=== PATIENT | male | born 1960 | race Caucasian/White ===

== ENCOUNTER → 2016-11-24 08:43 | Outpatient (CLI) | payer BC ==
[~2016-11-24] VITALS: Ht 198.1 cm; Wt 120.5 kg
--- NOTE | ~2016-11-24 | HEMODYNAMI ---
PATIENT:RAVI GARCÍA MEDICAL RECORD: [id number] : 56 LOCATION:D.CAT ADMISSION DATE: 11/24/16 Generatedon:11/24/201611:11 Patient name: RAVI GARCÍA Patient #: [id number] SSN: : 1960 Date of study: 11/24/2016 Page: Of Hemodynamic Procedure Report Patient Data Patient Demographics Procedure consent was obtained First Name: RAVI Gender: Male Last Name: RAQUEL : 1960 Middle Initial: TINA Age: 56 year(s) Patient #: [id number] Race: Unknown Additional ID: [id number] Contact details [address]: [address] [place] [address] State: [place] City: [place] Zip code: [address] Past Medical History Allergies: No known allergies Admission Admission Data Admission Date: 11/24/2016 Admission Time: 8:43 Lab Results Lab Result Date: 11/24/2016 Lab Result Time: 0:00 Biochemistry Name Units Result Min Max Creatinine mg/dl 1 --(--*-)-- 0.6 1.3 CBC Name Units Result Min Max Hemoglobin g/dl 14.3 --(*---)-- 13.5 17.5 Procedure Procedure Types Cath Procedure Diagnostic Procedure C [facility] w/Coronaries Miscellaneous Procedures Moderate Sedation up to 15 minutes Procedure Description Procedure Date Procedure Date: 11/24/2016 Procedure Start Time: 10:58 Procedure End Time: 11:09 Procedure Staff Name Function Krish Archuleta MD Performing Physician Alexander Nicole RT Scrub Paul Bolaños RN Nurse Diana Ngo RT Monitor Procedure Data Cath Procedure Fluoroscopy Diagnostic fluoroscopy Total fluoroscopy Time: 1.3 time: 1.3 min min Diagnostic fluoroscopy Total fluoroscopy dose: 308 dose: 308 mGy mGy Contrast Material Contrast Material Type Amount (ml) Isovue 300 57 Entry Location Entry Primary Successful Side Size Upsize Upsize Entry Closure Succes sful Closure Location (Fr) 1 (Fr) 2 (Fr) Remarks Device Remarks Femoral Right 5 Fr Exoseal artery Estimated blood loss: 5 ml Diagnostic catheters Device Type Used For End Catheter Placement Cordis 5Fr Pigtail LV Angiography Catheter (MP) Cordis 5Fr JL 4.0 Left Coronary Catheter (MP) Angiography Cordis 5Fr 3DRC Catheter Right Coronary (MP) Angiography Procedure Complications No complications Procedure Medications Medication Administration Route Dosage Oxygen NC 2 l/min Heparin Flush Bag added to field 2 bags (1000units/500ml NS) 0.9% NaCl I.V. 100 ml/hr Fentanyl I.V. 100 mcg Versed I.V. 2 mg Fentanyl I.V. 100 mcg Versed I.V. 2 mg Hemodynamics Rest HGB: 14.3 (g/dl) Heart Rate: 67 (bpm) Pressure Samples Time Site Value (mmHg) Purpose Heart Use Rate(bpm) 11:02 LV 19/12,13 Snapshot 65 Snapshots Pre Cath Intra NCS Post Cath Vital Signs Time Heart Resp SPO2 NIBP (mmHg) Rhythm Pain Sedation Rate (ipm) (%) Status Level (bpm) 10:35:13 64 17 98 143/93(112) NSR 0 (11) 10(A) , No pain 10:39:25 64 18 95 134/93(109) NSR 0 (11) 10(A) , No pain 10:43:35 70 18 95 131/92(117) NSR 0 (11) 10(A) , No pain 10:47:43 63 19 94 129/91(113) NSR 0 (11) 10(A) , No pain 10:51:52 65 18 95 136/84(111) NSR 0 (11) 10(A) , No pain 10:56:04 69 17 95 120/83(112) NSR 0 (11) 10(A) , No pain 11:00:12 69 17 96 117/83(96) NSR 0 (11) 9(A) , No pain 11:04:16 73 17 95 116/90(110) NSR 0 (11) 9(A) , No pain 11:08:20 81 17 96 129/93(116) NSR 0 (11) 9(A) , No pain 11:11:06 72 17 94 135/79(116) NSR 0 (11) 9(A) , No pain Medications Time Medication Route Dose Verified Delivered Reason Notes Effec tiveness by by 10:35:10 Oxygen NC 2 Paul Paul Per l/min Miky Bolaños RN physician RN 10:35:19 Heparin Flush added 2 Paul Paul used for Bag to bags Miky Bolaños RN procedure (1000units/500ml field RN NS) 10:35:32 0.9% NaCl I.V. 100 Paul Paul Per ml/hr Miky Bolaños RN physician RN 10:57:27 Fentanyl I.V. 100 Paul Paul for [facility] Miky Bolaños RN sedation RN 10:57:33 Versed I.V. 2 mg Paul Paul for Miky Bolaños RN sedation RN 10:59:02 Fentanyl I.V. 100 Paul Paul for [facility] Miky Bolaños RN sedation RN 10:59:06 Versed I.V. 2 mg Paul Paul for Miky Bolaños RN sedation trading manager Log Time Note 10:15:37 Paul Bolaños RN sent for patient. Start room use. 10:17:48 Diagnostic Cath status Elective 10:17:49 Time tracking: Regular hours 10:17:54 Plan of Care:Hemodynamics will remain stable., Cardiac rhythm will remain stable., Comfort level will be maintained., Respiratory function will remain adequate., Patient/ family verbilizes understanding of procedure., Procedure tolerated without complication., Recovers from procedure without complications.. 10:27:10 Patient received from Pre/Post Procedure Room to [facility] 2 Alert and oriented. Tansferred to table in Supine position. 10:27:11 Warm blankets applied, and leonides hugger turned on for patient comfort. 10:27:11 Correct patient and procedure confirmed by team. 10:27:13 Signed procedure consent form obtained from patient. 10:27:13 ECG and BP/O2 sat monitors applied to patient. 10:27:14 Full Disclosure recording started 10:34:10 Vital chart was started 10:34:17 Rhythm: sinus rhythm 10:34:35 H&P Date Dictated: 11/03/2016 Within 30 days and on chart., H&P Addendum completed by physician on day of procedure. (MUST COMPLETE FOR ALL OUTPATIENTS). 10:34:36 Pre-procedure instructions explained to patient. 10:34:37 Pre-op teaching completed and patient verbalized understanding. 10:34:39 Family in waiting room. 10:34:41 Patient NPO since Midnight. 10:34:47 Patient allergic to No known allergies 10:34:50 Is the patient allergic to Iodine/contrast media? No. 10:35:10 Oxygen 2 l/min NC was administered by Paul Bolaños RN; Per physician; 10:35:14 Is patient on blood thinner?Yes 10:35:16 ACC The patient was administered the following blood thiners within the last 24 hours: ACCPlavix 10:35:18 Patient diabetic? No. 10:35:19 Heparin Flush Bag (1000units/500ml NS) 2 bags added to field was administered by Paul Bolaños RN; used for procedure; 10:35:21 Previous problem with sedation/anesthesia? No ? 10:35:22 Snore? Yes 10:35:23 Sleep apnea? No 10:35:24 Deviated septum? No 10:35:24 Opens mouth fully? Yes 10:35:25 Sticks out tongue? Yes 10:35:26 Airway obstruction? No ? 10:35:28 Dentures? No ? 10:35:30 Pre procedure: right dorsailis pedis pulse 2+ Normal; easily identifiable; not easily obliterated 10:35:32 0.9% NaCl 100 ml/hr I.V. was administered by Paul Bolaños RN; Per physician; 10:35:34 Patient pain scale 0/10 ?. 10:35:43 IV patent on arrival in left hand with 0.9% NaCl at O. 10:36:28 Lab Result : Creatinine 1 mg/dl 10:36:28 Lab Result : Hemoglobin 14.3 g/dl 10:36:33 Lab results completed and on chart. 10:36:36 Right groin area was prepped with chlora-prep and draped in sterile fashion 10:36:37 Alarms reviewed by R. N. 10:36:37 Sharps counted by scrub and verified by R.N. 10:36:41 Use device set Femoral Dx 10:36:43 Acist Syringe opened to sterile field. 10:36:43 Bag Decanter opened to sterile field. 10:36:44 Medline Cath Pack opened to sterile field. 10:36:44 Terumo 5Fr [place] Sheath opened to sterile field. 10:36:45 St Randall 260cm J .035 wire opened to sterile field. 10:36:46 Acist Hand Control opened to sterile field. 10:36:46 Acist Manifold opened to sterile field. 10:36:47 Diagnostic Infinity 5Fr Multipack catheter opened to sterile field. 10:36:47 Tegaderm 4 x 4 opened to sterile field. 10:45:52 Zero performed for pressure channel P1 10:46:03 Baseline sample Acquired. 10:56:59 Final Timeout: patient, procedure, and site verified with staff and physician. All members of the team are in agreement. 10:57:01 Right groin site verified by team. 10:57:03 Physical assessment completed. ASA score P 2 - A patient with mild systemic disease as per Krish Archuleta MD. 10:57:07 Sedation plan: IV Moderate Sedation Versed, Fentanyl 10:57:27 Fentanyl 100 mcg I.V. was administered by Paul Bolaños RN; for sedation; 10:57:33 Versed 2 mg I.V. was administered by Paul Bolaños RN; for sedation; 10:58:34 Procedure started. 10:58:39 Local anesthetic to right femoral artery with Lidocaine 2% by Krish Archuleta MD.INITIAL ACCESS ONLY 10:59:02 Fentanyl 100 mcg I.V. was administered by Paul Bolaños RN; for sedation; 10:59:06 Versed 2 mg I.V. was administered by Paul Bolaños RN; for sedation; 11:01:02 A 5 Fr sheath was inserted into the Right Femoral artery 11:01:28 A Cordis 5Fr Pigtail Catheter (MP) was advanced over the wire and used for LV Angiography. 11:02:11 LV gram done using JI 11:02:15 EF : 50 % 11:02:17 LV hemodynamics recorded. 11:02:24 Injector settings: Ml/sec: 10, Volume: 20, 11:02:25 Catheter removed. 11:02:33 A Cordis 5Fr JL 4.0 Catheter (MP) was advanced over the wire and used for Left Coronary Angiography. 11:03:50 Catheter removed. 11:03:56 A Cordis 5Fr 3DRC Catheter (MP) was advanced over the wire and used for Right Coronary Angiography. 11:04:34 Catheter removed. 11:04:52 Sheath removed intact; hemostasis achieved with Exoseal to the Right Femoral artery. 11:05:00 Cordis 5Fr Exoseal opened to sterile field. 11:05:02 Procedure ended.(Physican Out) 11:05:35 Fluoroscopy time 01.30 minutes. 11:05:40 Fluoroscopy dose: 308 mGy 11:05:40 Flurop Dose total: 308 11:05:43 Contrast amount:Isovue 300 57ml. 11:05:45 Sharps counted by scrub and verified by R.N. 11:05:46 Insertion/operative site no bleeding no hematoma. 11:05:49 Post-op/insertion site Right Femoral artery dressed using a 4 x 4 and Tegaderm. 11:05:53 Post right femoral artery:stable, clean and dry 11:05:55 Post Procedure Pulses reassessed and unchanged 11:05:58 Post-procedure physical assessment completed. ASA score P 2 - A patient with mild systemic disease as per Krish Archuleta MD. 11:06:01 Post procedure rhythm: unchanged. 11:06:04 Estimated blood loss: 5 ml 11:06:05 Post procedure instruction explained to patient.Patient verbalizes understanding. 11:06:06 Patient needs reinforcement of post procedure teaching. 11:06:20 Procedure type changed to Cath procedure, Diagnostic procedure, LHC, LHC w/Coronaries, Miscellaneous Procedures, Moderate Sedation up to 15 minutes 11:06:26 Procedure Complication : No complications 11:06:28 See physician's report for complete and final results. 11:07:13 Procedure and supply charges have been captured, reviewed, submitted and are correct. 11:09:21 Vital chart was stopped 11:09:23 Report given to Pre/Post Procedure Room. 11:09:26 Patient transfered to Pre/Post Procedure Room with Stretcher. 11:09:34 Procedure ended. 11:09:34 Full Disclosure recording stopped 11:09:39 End room use (Document Last) Device Usage Item Name Manufacture Quantity Catalog Hospital Part Current Minimal Lo t# / Number Charge Number Stock Stock Serial# Code Acist Acist 1 [id number] [id number] [id number] 20 Syringe [employer] Bag Microtek 1 2002S 047238 85219 941767 5 [employer] Medline Cardinal 1 [id number] 148822 67535 661418 5 Cath Pack Step-In Terumo 5Fr Terumo 1 [id number] 464240 143912 173193 [address] Randall 1 077961 782899 169087 248274 30 260cm J .035 wire Acist Hand Acist 1 32813 779340 795656 134562 5 Control [employer] Inc Acist Acist 1 38336 590141 212915 220931 5 Manifold [employer] Inc Diagnostic Cardinal 1 [id number] 180982 00937 235101 30 MondeCaf[employer] Health 5Fr Multipack catheter Tegaderm 4 3M 1 1626W 696766 763624 668876 5 x 4 Cordis 5Fr Cardinal 1 980276 5 Pigtail Health Catheter (MP) Cordis 5Fr Cardinal 1 800802 5 JL 4.0 Health Catheter (MP) Cordis 5Fr Cardinal 1 [id number] 5 3DRC Health Catheter (MP) Cordis 5Fr Cardinal 1 EX500 207826 303561 704584 10 [facility] Step-In Signature Audit [place] Stage Time Signature Unsigned Intra-Procedure 11/24/2016 Diana 11:11:42 AM Counts RT(R) Signatures Monitor : Diana Signature : Counts RT Date : Time : [place] [id number] [place] [address]
[~2016-11-24 08:43] MED LIST: BAYER CHEWABLE81 MG PO; HYZAAR 50-12.51 TAB PO; NIFEDIPINE ER60 MG PO; NORVASC5 MG PO; ORACEA40 MG PO; PLAVIX75 MG PO; ZYLOPRIM300 MG PO
[2016-11-24 09:05] VITALS: BP 147/96; Ht 198.1 cm; Wt 120.5 kg
[2016-11-24 09:21] LABS: BASOPHILS 0.5 % (0.0-2.0); EOSINOPHILS 6.4 % (0-7); HEMATOCRIT 41.6 % (42.0-54.0); HEMOGLOBIN 14.3 g/dL (13.5-17.5); IMMATURE GRANULOCYTES 0.2 % (0-5); LYMPHOCYTES 27.2 % (15-50); MCH 31.8 pg (26.0-34.0); MCHC 34.4 g/dL (31.0-37.0); MCV 92.7 fL (80.0-100.0); MEAN PLATELET VOLUME 10.1 fL (7.4-10.4); MONOCYTES 9.2 % (2-11); NEUTROPHILS 56.5 % (40-80); PLATELET COUNT 142 10x3/uL (130-400); RBC 4.49 10x6/uL (4.20-6.10); RDW 12.4 % (11.5-14.5); WBC 6.2 10x3/uL (4.8-10.8)
[2016-11-24 09:26] LABS: CALC OSMOLALITY 274 mosm/kg (275-300); CARBON DIOXIDE 28.6 mmol/L (21.0-32.0); CHLORIDE - SERUM 99 mmol/L (98-107); GLUCOSE 111 mg/dL (74-106); POTASSIUM - SERUM 3.6 mmol/L (3.5-5.1); SODIUM 137 mmol/L (136-145); UREA NITROGEN 13 mg/dL (7-18); eGFR NON AFRICAN AMERICAN 81 mL/min (90-120)
--- NOTE | 2016-11-24 11:44 | NUR ---
1125 RECEIVED PT FROM LEGAL INVESTIGATOR, PT IS DROWSY, DENIES ANY C/O AT THIS TIME. IV INFUSING PER ORDERS. DRESSING TO RIGHT GROIN IS CDI, NO BLEEDING OR HEMATOMA NOTED. PEDAL PULSES ARE PALPABLE, CAP REFILL IS BRISK. PT INSTRUCTED TO KEEP HEAD TO PILLOW AND RIGHT LEG STRAIGHT AND PT VERBALIZES UNDERSTANDING. CALL LIGHT IN REACH, FAMILY AT BEDSIDE. 1140 PO FLUIDS SERVED. PT DENIES ANY NEEDS. RIGHT GROIN DRESSING IS CDI, NO BLEEDING OR HEMATOMA NOTED.
--- NOTE | 2016-11-24 12:15 | NUR ---
1215 PT DENIES ANY C/O. SINUS RHYTHM, RATE 64. RIGHT GROIN EXOSEAL IS CDI, AT BEDSIDE. CALL LIGHT IN REACH.
--- NOTE | 2016-11-24 12:31 | NUR ---
HOB ELEVATED 30 DEGREES. SANDWICH TRAY GIVEN. NO C/O NAUSEA OR CHEST PAIN. RIGHT GROIN CDI, NO BLEEDING OR HEMATOMA NOTED.
--- NOTE | 2016-11-24 12:51 | NUR ---
LEFT FA PIV D/C'D WITH CATHETER INTACT, BAND AID TO SITE. UP TO BEDSIDE TO GET DRESSED.
--- NOTE | 2016-11-24 13:14 | NUR ---
1305 DC INSTRUCIONS REVIEWED WITH PT WHO VERBALIZES UNDERSTANDING. PT ESCORTED TO PRIVATE AUTO VIA WC WITH DRIVING HIM HOME.
--- NOTE | 2016-12-05 10:19 | OP ---
PATIENT NAME: RAVI GARCÍA MEDICAL RECORD: [id number] :56 LOCATION:D.CAT ADMISSION DATE: SURGEON: MAICO PEARCE MD DATE OF OPERATION: 11/24/2016 PROCEDURES: 1. Left heart catheterization. 2. Selective coronary angiography. 3. Left ventriculogram. INDICATION: Chest pain compatible with angina. PROCEDURE IN DETAIL: After informed consent was obtained and after detailed explanation of risks, benefits as well as alternative therapies, the patient elected to proceed with angiogram and heart catheterization. The right femoral area was prepped and draped in normal sterile fashion. Right femoral artery was cannulated via modified Seldinger technique with placement of 5-Turkish sheath. All catheters exchanged through this sheath. FINDINGS: Left ventriculogram was performed in the standard 30-degree JI view reveals good cardiac wall motion throughout all segments. Overall ejection fraction 55%. SELECTIVE CORONARY ANGIOGRAPHY: Left main, left anterior descending, left circumflex, and right coronary artery are smooth-walled vessels with no angiographic evidence of coronary artery disease. OVERALL IMPRESSION: 1. No angiographic evidence of coronary artery disease. 2. Normal left heart pressures. 3. Normal left ventricular systolic function. Chest pain is noncardiac in etiology. No further cardiac workup needs to be ascertained. TRANSINT:[id number] Voice Confirmation ID: [id number] DOCUMENT ID: [id number] MAICO PEARCE MD at 1019 CC: [id number] DICTATION DATE: 11/24/16 1108 CRIMINAL PROFILER: 11/24/16 1252 DEP CLI 11/24/16 [place] [id number] [place] [id number]
== END | disposition home or self-care (01) ==
LOC: D.CATH 08:43
PROVIDERS: Internal Medicine Interventional Cardiology
DX: R07.89 Other chest pain (principal)